=== PATIENT | female | born 1965 | race African-American/Black ===

== ENCOUNTER 2023-12-25 08:10 | Inpatient (IN) | payer MEDICARE, OTHER ==
[~2023-12-25] VITALS: Ht 162.6 cm; Wt 72.0 kg
[2023-12-25 08:40] VITALS: PULSE 77; RESP 25; O2SAT 100
[2023-12-25 08:42] LABS: Basophils # (auto) 0.1 10 ^3/uL (0-0.2); Basophils % (auto) 0.9 % (0.0-2.0); Eosinophils # (auto) 0 10 ^3/uL (0-0.8); Eosinophils % (auto) 0.1 % (0.0-7.0); Hematocrit 42.6 % (36.0-46.0); Hemoglobin 14.2 g/dL (12.2-16.2); Lymphocytes % (auto) 15.3 % (10.0-50.0); Mean Corpuscular Hemoglobin 29.6 pg (28.0-32.0); Mean Corpuscular Hgb Conc. 33.2 g/dL (32.0-36.0); Mean Corpuscular Volume 89.2 fL (80.0-100.0); Monocytes # (auto) 0.3 10 ^3/uL (0-1.3); Monocytes % (auto) 4.5 % (0.0-12.0); Neutrophils # (auto) 5.1 10 ^3/uL (1.6-8.6); Neutrophils % (auto) 79.2 % (37.0-80.0); Nucleated Red Blood Cells % 0.4 %; Red Blood Cells 4.78 10^6/uL (4.0-5.20); Red Cell Distribution Width 14.6 % (11.8-14.3); White Blood Cell 6.4 10^3/uL (4.4-10.8)
[2023-12-25 09:05] LABS: Alanine Aminotransferase 14 U/L (7-40); Albumin 4.4 g/dL (3.2-4.8); Alkaline Phosphatase 55 U/L (46-116); Anion Gap 16 (5-15); Aspartate Aminotransferase 20 U/L (13-40); BUN/Creatinine Ratio 6.5 (10.0-20.0); Blood Urea Nitrogen 62 mg/dL (9-23); Calcium 10.2 mg/dL (8.5-10.1); Carbon Dioxide 24 mmol/L (20-30); Chloride 95 mmol/L (98-107); Glucose 137 mg/dL (74-106); Potassium 4.3 mmol/L (3.5-5.1); Sodium 135 mmol/L (136-145)
[2023-12-25 09:06] LABS: Bilirubin, Total 0.4 mg/dL (0.2-1.0); Total Protein 6.7 g/dL (5.7-8.2)
[2023-12-25] MEDS: ENOXAPARIN SOD 80 MG/0.8ML SYRINGE SC ONE ×2 (10:24→10:28)
[2023-12-25] MEDS ORDERED: DOCUSATE SOD 100 MG CAP PO PRN (12:00)
[2023-12-25] MEDS ORDERED: MORPHINE SULFATE INJ 2 MG/ml SYRG IV PRN (12:00)
[2023-12-25 15:13] LABS: Urine Bacteria MANY /hpf (None Seen); Urine Blood 1+ /uL (Negative); Urine Clarity Ex.Turbid (Clear); Urine Color Light-Orange (Yellow); Urine Mucus MANY (None Seen); Urine Protein, UAD 3+ (Negative); Urine Specific Gravity 1.022 (1.001-1.035); Urine Urobilinogen Normal (Negative); Urine WBC 47 /hpf (0 - 5); Urine pH 7.5 (5.0-9.0)
[2023-12-25 16:06] LABS: INR 1.14 (0.9-1.15); Prothrombin Time 11.9 sec (9.3-11.8)
[2023-12-25] MEDS: HEPARIN 1,000 UNITS/ml 1ML VIAL ONE (17:48)
[2023-12-25] MEDS: hydrALAZINE HCL 20 MG/ML VL IV PRN (19:08)
[2023-12-25 20:15] VITALS: PULSE 77; RESP 16; O2SAT 98
[2023-12-25] MEDS: cloNIDine 0.1 mg/24hr 7 DAY PATCH TD SCH (21:26)
[2023-12-25] MEDS: NIFEdipine ER 30 MG TAB PO SCH (22:49)
[2023-12-26] MEDS: ONDANSETRON HCL 4 MG/2 ML VIAL IV PRN (00:10)
[2023-12-26] MEDS: ONDANSETRON HCL 4 MG/2 ML VIAL ONE (00:21)
[2023-12-26] MEDS: cloNIDine HCL 0.1 MG TAB PO PRN (03:49)
[2023-12-26] MEDS: METOCLOPRAMIDE HCL 5MG/ml INJ 2ml VIAL IV PRN (03:50)
[2023-12-26 05:54] LABS: Basophils # (auto) 0 10 ^3/uL (0-0.2); Basophils % (auto) 0.8 % (0.0-2.0); Eosinophils # (auto) 0 10 ^3/uL (0-0.8); Eosinophils % (auto) 0.3 % (0.0-7.0); Hematocrit 39.6 % (36.0-46.0); Hemoglobin 13.3 g/dL (12.2-16.2); Lymphocytes # (auto) 0.8 10 ^3/uL (0.4-5.4); Lymphocytes % (auto) 14.6 % (10.0-50.0); Mean Corpuscular Hgb Conc. 33.6 g/dL (32.0-36.0); Mean Corpuscular Volume 89.3 fL (80.0-100.0); Monocytes # (auto) 0.4 10 ^3/uL (0-1.3); Monocytes % (auto) 6.7 % (0.0-12.0); Neutrophils # (auto) 4.3 10 ^3/uL (1.6-8.6); Neutrophils % (auto) 77.6 % (37.0-80.0); Nucleated Red Blood Cells % 0.2 %; Red Blood Cells 4.44 10^6/uL (4.0-5.20); Red Cell Distribution Width 14.3 % (11.8-14.3); White Blood Cell 5.5 10^3/uL (4.4-10.8)
[2023-12-26 06:29] LABS: Albumin 3.8 g/dL (3.2-4.8); Alkaline Phosphatase 46 U/L (46-116); Anion Gap 13 (5-15); Calcium 9.5 mg/dL (8.7-10.4); Carbon Dioxide 26 mmol/L (20-30); Chloride 98 mmol/L (98-107); Potassium 4.4 mmol/L (3.5-5.1); Sodium 137 mmol/L (136-145)
[2023-12-26 06:30] LABS: BUN/Creatinine Ratio 5.4 (10.0-20.0); Glucose 120 mg/dL (74-106)
[2023-12-26 06:32] LABS: Aspartate Aminotransferase 11 U/L (13-40); Bilirubin, Total 0.4 mg/dL (0.2-1.0); Total Protein 6.2 g/dL (5.7-8.2)
[2023-12-26 06:58] LABS: Alanine Aminotransferase < 9 U/L (7-40); Blood Urea Nitrogen 40 mg/dL (9-23)
[2023-12-26 07:25] VITALS: PULSE 67; RESP 14; O2SAT 97
[2023-12-26] MEDS ORDERED: ALBUMIN 25% 100 ML, ALBUMIN 25% 100 ML IV PRN (07:45)
[2023-12-26] MEDS: ENOXAPARIN SOD 30 MG/0.3 ML SYRINGE SC SCH (10:00)
[2023-12-26] MEDS: SODIUM CHL 0.9% 1000 ML BAG XX ONE (10:02)
[2023-12-26] MEDS: PANTOPRAZOLE 40 MG/10 ML VIAL INJ IV SCH (12:17)
[2023-12-26 14:29] VITALS: BP 141/78; PULSE 72; PULSE 74; RESP 18; TEMP 97.7; O2SAT 98
[2023-12-26] MEDS ORDERED: CLON0.1T PO (15:31)
[2023-12-26] MEDS ORDERED: HYDR50TA47 PO (15:31)
[2023-12-26] MEDS ORDERED: FERR325T24 PO (15:31)
[2023-12-26] MEDS ORDERED: CARV-217 PO (15:31)
[2023-12-26] MEDS ORDERED: LOSA-535 PO (15:31)
[2023-12-26] MEDS ORDERED: AML5T PO (15:31)
[2023-12-26 20:00] VITALS: PULSE 73
[2023-12-26 21:18] VITALS: BP 178/71; PULSE 72; RESP 17; TEMP 97.8; O2SAT 98
[2023-12-27] VITALS (8 sets, daily range): BP systolic 142–180; BP diastolic 71–82; PULSE 68–91; RESP 17–18; TEMP 98.2–99.1; O2SAT 96–99
[2023-12-27] MEDS: REGADENOSON 0.4 MG/5 ML SYRG IV ONE ×2 (10:14→10:15)
[2023-12-27 14:13] LABS: Body Fluid Polymorphonuclear 15 % (0-25); Body Fluid Red Blood Cells 20 CUMM (0-2000); Body Fluid White Blood Cells 95 CUMM (0-200)
[2023-12-27] MEDS: HEPARIN SODIUM (PORCINE) 5000 UNITS/ML 1ML VIAL IV ONE (17:00)
[2023-12-27] MEDS: CLOPIDOGREL BISULFATE 75 MG TAB PO ONE (17:28)
[2023-12-27 17:33] LABS: Triglycerides 223 mg/dL (< 150)
[2023-12-27 17:34] LABS: LDL Cholesterol 129 mg/dL (< 100)
[2023-12-27 17:35] LABS: Cholesterol 222 mg/dL (< 200); HDL Cholesterol 37 mg/dL (40-59)
[2023-12-27 17:36] LABS: Basophils # (auto) 0.1 10 ^3/uL (0-0.2); Basophils % (auto) 1.1 % (0.0-2.0); Eosinophils # (auto) 0.1 10 ^3/uL (0-0.8); Hemoglobin 13.2 g/dL (12.2-16.2); Lymphocytes # (auto) 1.1 10 ^3/uL (0.4-5.4); Lymphocytes % (auto) 20.8 % (10.0-50.0); Mean Corpuscular Hemoglobin 29.7 pg (28.0-32.0); Mean Corpuscular Volume 90.1 fL (80.0-100.0); Monocytes # (auto) 0.4 10 ^3/uL (0-1.3); Monocytes % (auto) 7.8 % (0.0-12.0); Neutrophils # (auto) 3.7 10 ^3/uL (1.6-8.6); Neutrophils % (auto) 69.3 % (37.0-80.0); Nucleated Red Blood Cells % 0.1 %; Red Blood Cells 4.44 10^6/uL (4.0-5.20); Red Cell Distribution Width 14.5 % (11.8-14.3); White Blood Cell 5.4 10^3/uL (4.4-10.8)
[2023-12-27] MEDS: HEPARIN DRIP/D5W 100UNITS/ML 250 ML IV SCH (18:35)
[2023-12-27 19:01] LABS: INR 1.07 (0.9-1.15); Partial Thromboplastin Time < 20.0 SEC (24.5-34.5); Prothrombin Time 11.2 sec (9.3-11.8)
[2023-12-27] MEDS: ATORVASTATIN 20 MG TAB PO SCH (21:22)
[2023-12-27] MEDS ORDERED: ENOXAPARIN SOD 100 MG/1 ML SYRINGE SC SCH (22:00)
[2023-12-28] VITALS (9 sets, daily range): BP systolic 123–163; BP diastolic 55–86; PULSE 66–75; RESP 16–18; TEMP 36.7; O2SAT 97–99
[2023-12-28 01:02] LABS: INR 1.13 (0.9-1.15); Partial Thromboplastin Time 69.8 SEC (24.5-34.5); Prothrombin Time 11.8 sec (9.3-11.8)
[2023-12-28 06:02] LABS: Basophils # (auto) 0.1 10 ^3/uL (0-0.2); Basophils % (auto) 1.2 % (0.0-2.0); Eosinophils # (auto) 0.1 10 ^3/uL (0-0.8); Hematocrit 38.6 % (36.0-46.0); Hemoglobin 12.9 g/dL (12.2-16.2); Lymphocytes # (auto) 1.3 10 ^3/uL (0.4-5.4); Lymphocytes % (auto) 27.4 % (10.0-50.0); Mean Corpuscular Hemoglobin 30.1 pg (28.0-32.0); Mean Corpuscular Hgb Conc. 33.5 g/dL (32.0-36.0); Mean Corpuscular Volume 89.8 fL (80.0-100.0); Monocytes # (auto) 0.4 10 ^3/uL (0-1.3); Monocytes % (auto) 7.7 % (0.0-12.0); Neutrophils # (auto) 2.9 10 ^3/uL (1.6-8.6); Neutrophils % (auto) 60.7 % (37.0-80.0); Nucleated Red Blood Cells % 0.1 %; Red Blood Cells 4.29 10^6/uL (4.0-5.20); Red Cell Distribution Width 14.4 % (11.8-14.3); White Blood Cell 4.8 10^3/uL (4.4-10.8)
[2023-12-28 06:09] LABS: Chloride 100 mmol/L (98-107); Potassium 4.8 mmol/L (3.5-5.1); Sodium 135 mmol/L (136-145)
[2023-12-28 06:10] LABS: Anion Gap 9 (5-15); Carbon Dioxide 26 mmol/L (20-30)
[2023-12-28 06:11] LABS: Calcium 9.9 mg/dL (8.7-10.4)
[2023-12-28 06:15] LABS: BUN/Creatinine Ratio 3.6 (10.0-20.0); Blood Urea Nitrogen 30 mg/dL (9-23); Glucose 112 mg/dL (74-106)
[2023-12-28 06:16] LABS: Magnesium 2.4 mg/dL (1.6-2.6)
[2023-12-28] MEDS: SODIUM CHL 0.9% 1000 ML BAG XX ONE (07:00)
[2023-12-28] MEDS: CLOPIDOGREL BISULFATE 75 MG TAB PO SCH (10:00)
[2023-12-28 11:39] LABS: INR 1.14 (0.9-1.15); Prothrombin Time 11.9 sec (9.3-11.8)
[2023-12-28 12:16] LABS: Partial Thromboplastin Time > 139.0 SEC (24.5-34.5)
[2023-12-28] MEDS ORDERED: INSU100I54 SC (12:29)
[2023-12-28] MEDS ORDERED: SEVE800T10 PO (12:29)
[2023-12-28] MEDS ORDERED: INSU100I70 SC (12:29)
[2023-12-28] MEDS ORDERED: DOCU-94 PO (12:29)
[2023-12-28] MEDS: HEPARIN DRIP/D5W 100UNITS/ML 250 ML IV SCH (13:32)
[2023-12-28 14:07] LABS: Protein, Body Fluid 3.1 g/dL (.)
== END 2023-12-28 18:35 | disposition home or self-care (01) | DRG 280 ==
LOC: EDBD 08:10 → ER 08:10 → TELE 11:59 → ER 11:59 → CENTRAL 12-26 14:25 → TELE-CENTR 12-26 17:00
PROVIDERS: ADMIT Nurse Practitioner Family; ATTEND Internal Medicine
PROC: 05H933Z Insertion of Infusion Device into Right Brachial Vein, Percutaneous Approach (ICD-10-PCS; 2023-12-25)
PROC: B54MZZA Ultrasonography of Right Upper Extremity Veins, Guidance (ICD-10-PCS; 2023-12-25)
PROC: 5A1D70Z Performance of Urinary Filtration, Intermittent, Less than 6 Hours Per Day (ICD-10-PCS; 2023-12-25)
PROC: 5A1D70Z Performance of Urinary Filtration, Intermittent, Less than 6 Hours Per Day (ICD-10-PCS; 2023-12-26)
PROC: 0W993ZZ Drainage of Right Pleural Cavity, Percutaneous Approach (ICD-10-PCS; principal; 2023-12-27)
PROC: 5A1D70Z Performance of Urinary Filtration, Intermittent, Less than 6 Hours Per Day (ICD-10-PCS; 2023-12-28)
DX: I13.2 Hypertensive heart and chronic kidney disease with heart failure and with stage 5 chronic kidney disease, or end stage renal disease (principal); G93.41 Metabolic encephalopathy; I21.A1 Myocardial infarction type 2; N18.6 End stage renal disease; I50.31 Acute diastolic (congestive) heart failure; I16.1 Hypertensive emergency; E87.20 Acidosis, unspecified; E87.5 Hyperkalemia; K80.20 Calculus of gallbladder without cholecystitis without obstruction; D64.9 Anemia, unspecified; E66.9 Obesity, unspecified; E78.5 Hyperlipidemia, unspecified; Z88.0 Allergy status to penicillin; Z68.27 Body mass index [BMI] 27.0-27.9, adult; Z99.2 Dependence on renal dialysis; Z79.899 Other long term (current) drug therapy; Z82.49 Family history of ischemic heart disease and other diseases of the circulatory system
CPT/HCPCS: 32555; 36415; 71045; 74176; 76604; 76705; 76942; 78452; 80048; 80053; 80061; 81001; 83036; 83690; 83735; 83986; 84443; 84484; 85025; 85610; 85730; 87205; 87340; 89051; 90935; 93017; 93306; 96372; 99291; C9113; G0378; J1642; J2405

== ENCOUNTER 2024-04-05 17:47 | Inpatient (IN) | payer MEDICARE, MEDICAID ==
[~2024-04-05] VITALS: Ht 170.2 cm; Wt 58.0 kg
[~2024-04-05 17:47] MED LIST: AML5T PO; CARV-217 PO; CLON0.1T PO; DOCU-94 PO; FERR325T24 PO; HYDR50TA47 PO; INSU100I54 SC; INSU100I70 SC; LOSA-535 PO; SEVE800T10 PO
[2024-04-05 18:34] VITALS: PULSE 78; RESP 16; O2SAT 97
[2024-04-05] MEDS: ONDANSETRON HCL 4 MG/2 ML VIAL IV ONE ×2 (18:56→23:47)
[2024-04-05] MEDS: hydrALAZINE HCL 20 MG/ML VL IV ONE (18:56)
[2024-04-05 20:15] VITALS: PULSE 70; RESP 18; O2SAT 96
[2024-04-05 20:47] LABS: Basophils # (auto) 0 10 ^3/uL (0-0.2); Basophils % (auto) 0.9 % (0.0-2.0); Eosinophils # (auto) 0 10 ^3/uL (0-0.8); Eosinophils % (auto) 0.1 % (0.0-7.0); Hematocrit 39.7 % (36.0-46.0); Hemoglobin 13.4 g/dL (12.2-16.2); Lymphocytes # (auto) 0.9 10 ^3/uL (0.4-5.4); Lymphocytes % (auto) 19.6 % (10.0-50.0); Mean Corpuscular Hemoglobin 30.3 pg (28.0-32.0); Mean Corpuscular Hgb Conc. 33.7 g/dL (32.0-36.0); Monocytes # (auto) 0.2 10 ^3/uL (0-1.3); Monocytes % (auto) 4.6 % (0.0-12.0); Neutrophils # (auto) 3.3 10 ^3/uL (1.6-8.6); Neutrophils % (auto) 74.8 % (37.0-80.0); Nucleated Red Blood Cells % 0.2 %; Red Blood Cells 4.41 10^6/uL (4.0-5.20); Red Cell Distribution Width 16.4 % (11.8-14.3); White Blood Cell 4.5 10^3/uL (4.4-10.8)
[2024-04-05 20:49] LABS: Alanine Aminotransferase 13 U/L (7-40); Albumin 4.8 g/dL (3.2-4.8); Alkaline Phosphatase 65 U/L (46-116); Anion Gap 16 (5-15); Aspartate Aminotransferase 16 U/L (13-40); BUN/Creatinine Ratio 4.1 (10.0-20.0); Bilirubin, Total 0.6 mg/dL (0.2-1.0); Blood Urea Nitrogen 38 mg/dL (9-23); Calcium 10.6 mg/dL (8.7-10.4); Carbon Dioxide 24 mmol/L (20-30); Chloride 95 mmol/L (98-107); Glucose 146 mg/dL (74-106); Lipase 55 U/L (12-53); Potassium 4.9 mmol/L (3.5-5.1); Sodium 135 mmol/L (136-145); Total Protein 7.8 g/dL (5.7-8.2)
[2024-04-05 22:08] VITALS: PULSE 89; RESP 20; O2SAT 100
[2024-04-05] MEDS: LABETALOL HCL 20 MG/4 ML VL IV ONE (22:18)
[2024-04-05] MEDS: NITROGLYCERIN 2% OINT 1GM PKG TD ONE (23:45)
[2024-04-05] MEDS: MORPHINE SULFATE 4 MG/ML SYR/VIAL IV ONE (23:47)
[2024-04-06] VITALS (8 sets, daily range): BP systolic 150–237; BP diastolic 72–115; PULSE 76–89; RESP 18–20; TEMP 98.1–98.7; O2SAT 96–98
[2024-04-06] MEDS ORDERED: DEXTROSE (50%) 50ML SYRG IV PRN
[2024-04-06] MEDS ORDERED: MORPHINE SULFATE INJ 2 MG/ml SYRG IV PRN
[2024-04-06] MEDS: NITROGLYCERIN 0.4 MG SL TAB SL PRN (02:31)
[2024-04-06] MEDS: hydrALAZINE HCL 20 MG/ML VL IV PRN ×2 (02:52→12:26)
[2024-04-06] MEDS: ONDANSETRON HCL 4 MG/2 ML VIAL IV PRN (04:11)
[2024-04-06] MEDS: cloNIDine HCL 0.1 MG TAB PO SCH (05:39)
[2024-04-06] MEDS: ACCU-CHEK COMFORT CURVE STRIP VI SCH (05:52)
[2024-04-06] MEDS: InsuLIN REG 1unit/0.01ml Soln (100units/ml) SC SCH (05:55)
[2024-04-06 06:47] LABS: Anion Gap 20 (5-15); Carbon Dioxide 24 mmol/L (20-30); Chloride 95 mmol/L (98-107); Potassium 4.7 mmol/L (3.5-5.1); Sodium 139 mmol/L (136-145)
[2024-04-06 06:49] LABS: Calcium 10.3 mg/dL (8.7-10.4)
[2024-04-06 06:53] LABS: BUN/Creatinine Ratio 4.9 (10.0-20.0); Glucose 204 mg/dL (74-106)
[2024-04-06 06:55] LABS: Blood Urea Nitrogen 52 mg/dL (9-23)
[2024-04-06] MEDS ORDERED: ATOR20TA50 PO (07:14)
[2024-04-06] MEDS ORDERED: ONDA-155 PO (07:14)
[2024-04-06] MEDS ORDERED: PANT40TA2 PO (07:14)
[2024-04-06] MEDS: SEVELAMER 800 MG TAB PO SCH (08:26)
[2024-04-06] MEDS: amLODIPine BESYLATE 5 MG TAB PO SCH (08:27)
[2024-04-06] MEDS: LOSARTAN POTASSIUM 50 MG TAB PO SCH (08:29)
[2024-04-06] MEDS: CARVEDILOL 12.5 MG TAB PO SCH (08:29)
[2024-04-06] MEDS ORDERED: NIFEdipine ER 30 MG TAB PO SCH ×2 (10:00)
[2024-04-06] MEDS: PANTOPRAZOLE 40 MG/10 ML VIAL INJ IV SCH (17:06)
[2024-04-06] MEDS: NIFEdipine ER 30 MG TAB PO SCH (21:12)
[2024-04-06] MEDS: ACETAMINOPHEN 325 MG TAB PO PRN (21:55)
[2024-04-07] VITALS (8 sets, daily range): BP systolic 113–153; BP diastolic 48–91; PULSE 67–97; RESP 14–18; TEMP 97.2–98.3; O2SAT 91–99
[2024-04-07] MEDS: METOCLOPRAMIDE HCL 5MG/ml INJ 2ml VIAL IV SCH (04:27)
[2024-04-07] MEDS ORDERED: SODIUM CHL 0.9% 1000 ML BAG XX ONE (07:00)
[2024-04-08] VITALS (7 sets, daily range): BP systolic 121–153; BP diastolic 64–77; PULSE 64–77; RESP 16–17; TEMP 97.9–98.8; O2SAT 93–99
[2024-04-09] VITALS (7 sets, daily range): BP systolic 126–157; BP diastolic 62–81; PULSE 64–80; RESP 16–17; TEMP 36.7; O2SAT 95–99
== END 2024-04-09 17:30 | disposition home or self-care (01) | DRG 304 ==
LOC: ER 17:47 → EDBD 17:47 → TELE 23:58 → TELE-WESTW 23:58
PROVIDERS: ADMIT Nurse Practitioner; ATTEND Internal Medicine
PROC: 5A1D70Z Performance of Urinary Filtration, Intermittent, Less than 6 Hours Per Day (ICD-10-PCS; principal; 2024-04-07)
DX: I16.0 Hypertensive urgency (principal); N18.6 End stage renal disease; E83.39 Other disorders of phosphorus metabolism; I12.0 Hypertensive chronic kidney disease with stage 5 chronic kidney disease or end stage renal disease; E11.22 Type 2 diabetes mellitus with diabetic chronic kidney disease; Z99.2 Dependence on renal dialysis; Z88.0 Allergy status to penicillin; Z79.4 Long term (current) use of insulin
CPT/HCPCS: 36415; 71045; 80048; 80053; 82962; 83690; 84132; 85025; 90935; 96374; 96375; 96376; 99291; G0378; J1642; J1815; J2405; J2470